=== PATIENT | female | born 1980 | race Caucasian/White ===

== ENCOUNTER → 2017-02-21 | Outpatient (CLI) | payer BC ==
--- NOTE | 2017-02-21 12:53 | WOMENS IMAGING REPORT ---
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 TECHNIQUE: Dynamic and static grayscale images acquired of the pelvis via transabdominal approach an d recorded on PACS. Additional selected color Doppler and spectral images recorded. LIMITATIONS: None. FINDINGS: UTERUS: Normal contour. Possible arcuate uterus. No mass. ENDOMETRIAL STRIPE: No focal or generalized thickening. No masses. CERVIX: Nabothian cysts are present. RIGHT OVARY: A 19 mm follicular cyst is present. RIGHT OVARY DOPPLER: Normal arterial vascular flow without evidence for torsion. LEFT OVARY: 30 x 20 x 36 mm simple cyst is present. LEFT OVARY DOPPLER: Normal arterial vascular flow without evidence for torsion. FREE FLUID: Free fluid is present in the posterior cul-de-sac. OTHER: No other significant finding. MEASUREMENTS: UTERUS: 10.3 x 4.2 x 5.7 cm. ENDOMETRIAL STRIPE: 9 mm. RIGHT OVARY: 43 x 22 x 27 mm. LEFT OVARY: 37 x 31 x 49 mm. IMPRESSION: 1. Possible arcuate uterus. No other uterine abnormality is suggested. 2. There is a 3 cm left ovarian cyst. 3. There is free fluid in the cul-de-sac. TECHNICAL DOCUMENTATION: JOB ID: [id number] [employer]- All Rights Reserved
== END ==
LOC: WI 10:08
PROVIDERS: ATTEND Obstetrics & Gynecology
DX: N92.6 Irregular menstruation, unspecified (principal); N83.292 Other ovarian cyst, left side; Z15.01 Genetic susceptibility to malignant neoplasm of breast
CPT/HCPCS: 76830; 76856

== ENCOUNTER → 2018-03-09 | Outpatient (CLI) | payer BC ==
--- NOTE | 2018-03-09 15:40 | RADIOLOGY REPORT (SQ) ---
EXAM DESCRIPTION: U/S NON-OB PELVIS TV W/O DOP COMPLETED DATE/TIME: 03/09/2018 3:23 pm REASON FOR STUDY: Z15.01 GENETIC SUSCEPTIBILITY TO MALIGNANT NEOPLASM OF BREAST Z15.01 GENETIC SUSC EPTIBILITY TO MALIGNANT NEOPLASM OF BREAS COMPARISON: 02/21/2017 TECHNIQUE: Dynamic and static grayscale images acquired of the pelvis via transvaginal approach and recorded on PACS. Additional selected color Doppler and spectral images recorded. LIMITATIONS: None. FINDINGS: UTERUS: The uterus measures 7.3 x 5.6 x 4.0 cm. Partial septate uterus is suggested. No mass. ENDOMETRIAL STRIPE: A 1.3 x 0.8 x 0.9 cm echogenic complex area adjacent to the endometrium stripe. No blood flow demonstrated. Considerations for this finding includes possible uterine fibroid. CERVIX: Nabothian cysts. RIGHT OVARY AND DOPPLER: Normal size. Normal arterial vascular flow without evidence for torsion. LEFT OVARY AND DOPPLER: Normal size. A 3.1 x 3.1 x 2.4 cm septated ovarian cyst. Small amount of ad nexal free fluid. Normal arterial vascular flow without evidence for torsion. FREE FLUID: None noted. OTHER: No other significant finding. MEASUREMENTS: UTERUS: 7.3 x 5.6 x 4.0 cm ENDOMETRIAL STRIPE: 8 mm RIGHT OVARY: 2.5 x 1.6 x 1.5 cm LEFT OVARY: 3.9 x 3.4 x 3.2 cm IMPRESSION: 1 Possible partial septate uterus suggested. 2 Stable appearing septated left ovarian cyst. 3 An echogenic complex area adjacent to the endometrial cavity may represent fibroid. 4 Small amount of free fluid in the left adnexal region. 5. Nabothian cysts in the cervix region. TECHNICAL DOCUMENTATION: JOB ID: [id number]- All Rights Reserved Rev-01/09 Reading location - IP/workstation name: [email or web address]
== END ==
LOC: RAD 15:01
PROVIDERS: ATTEND Obstetrics & Gynecology
DX: Z15.01 Genetic susceptibility to malignant neoplasm of breast (principal)
CPT/HCPCS: 76830